=== PATIENT | female | born 1960 | race Caucasian/White ===

== ENCOUNTER 2019-07-03 05:57 | Day surgery (SDC) | payer BC ==
[~2019-07-03 05:57] MED LIST: Buffered Lidocaine 1% SYRIN* 1 ML/SYRINGE INTRADERM ONE
[2019-07-03] MEDS ORDERED: Famotidine IV* 10 MG/ML 2 ML (20 mg) IV ONE (06:00)
[2019-07-03] MEDS ORDERED: Lactated Ringers 1000 ML Bag* 1,000 ML IV SCH (06:00)
[2019-07-03] MEDS ORDERED: Dexamethasone IV* 4 MG/ML 1 ML (4 MG) IV SLOW PU ONE (06:00)
[2019-07-03] MEDS ORDERED: Famotidine IV* 10 MG/ML 2 ML (20 mg) ONE (06:11)
[2019-07-03] MEDS ORDERED: Buffered Lidocaine 1% SYRIN* 1 ML/SYRINGE INTRADERM ONE ×2 (06:11→12:02)
[2019-07-03] MEDS ORDERED: Dexamethasone IV* 4 MG/ML 1 ML (4 MG) ONE (06:11)
[2019-07-03] MEDS ORDERED: Midazolam* 1 MG/ML 5 ML VIAL (5 MG) ONE (07:12)
[2019-07-03] MEDS ORDERED: fentaNYL* 50 MCG/ML 2 ML VIAL (100 MCG VIAL) ONE (07:12)
[2019-07-03] MEDS ORDERED: Silver Nitrate/Potassium Nitr* 1 PAK (1 PAK PER PATIENT) ONE (07:23)
[2019-07-03] MEDS ORDERED: Chloroprocaine 2%* 20 ML VIAL ONE (07:31)
[2019-07-03] MEDS ORDERED: Midazolam* 1 MG/ML 2 ML VIAL (2 MG) ONE ×2 (07:46→08:21)
[2019-07-03] MEDS ORDERED: Ibuprofen TAB* 600 MG PO PRN (08:43)
[2019-07-03] MEDS ORDERED: HYDROcodone/ACETAMIN 5-325 MG* 1 TAB PO PRN ×2 (08:43→08:52)
[2019-07-03] MEDS ORDERED: Ketorolac INJ* 30 MG/ML 1 ML VIAL IV PRN (08:52)
[2019-07-03] MEDS ORDERED: Ondansetron INJ* 2 MG/ML VIAL IV PRN (08:52)
[2019-07-03] MEDS ORDERED: Naloxone* 0.4 MG/ML 1 ML VIAL IV PRN (08:52)
[2019-07-03] MEDS ORDERED: PROCHLORPERAZINE INJ 5 MG/ML 2 ML VIAL IV PRN (08:52)
[2019-07-03] MEDS ORDERED: fentaNYL* 50 MCG/ML 2 ML VIAL (100 MCG VIAL) IV PRN (08:52)
[2019-07-03] MEDS ORDERED: oxyCODONE/Acetamin 5/325 MG* TAB PO PRN (08:52)
--- NOTE | 2019-07-03 10:02 | OP ---
DATE OF OPERATION: 07/03/19 [facility] DATE OF : 56 SURGEON: Vicky Glass MD ANESTHESIOLOGIST: Dr. Hoang. ANESTHESIA: Spinal anesthesia with sedation. PRE-OP DIAGNOSES: Postmenopausal bleeding and thickened endometrium on ultrasound. POST-OP DIAGNOSES: Postmenopausal bleeding and thickened endometrium on ultrasound. OPERATIVE PROCEDURE: Dilatation, hysteroscopy, curettage. ESTIMATED BLOOD LOSS: Minimal less than 20 cc. FINDINGS: Midline cervix, retroverted uterus, the uterus sounds to 7. The cervix is stenotic at the level of the internal os. There were no endocervical or endometrial polyps seen. There was atrophic appearing endometrium. I was not able to visualize either tubal ostia or the fundus. The MyoSure fluid deficit was approximately 800 cc. COMPLICATIONS: None. COUNT: Sponge, count correct x2. CONDITION: The patient was brought to the recovery room awake and in stable condition. DESCRIPTION OF PROCEDURE: The patient was brought to the operating room. When spinal anesthesia was found to be adequate, the patient was prepped and draped in the usual sterile fashion in the dorsal lithotomy position. Time out was performed. Exam under anesthesia was performed after the bladder was emptied with a straight catheter of approximately 100cc clear urine. The weighted speculum was placed in the vagina. The anterior lip of the cervix was grasped with a single-tooth tenaculum and the cervix was gently dilated using the os finder then the graduated Hegar dilators. The uterus sounded to 7. The hysteroscope was introduced and the endocervix appeared normal. No endometrial polyp was visualized. There was atrophic appearing endometrium. Neither tubal ostia was able to be visualized, I do not think I fully visualized the fundal portion of the uterus either due to scarring at the fundus or if the uterus is markedly retroverted, I could not negotiate the angle to be able to visualize the fundus. I was meeting resistance and did not want to risk perforating. The hysteroscope was removed. Endometrial curettage was then performed. A scant amount of tissue was retrieved and sent to pathology in [place]. The single- tooth tenaculum was removed from the anterior lip of the cervix. Excellent hemostasis was noted. All instruments were removed from the vagina. Sponge, count was correct x2. The patient tolerated the procedure well and was brought to the recovery room, awake, and in stable condition. [id number]/[facility] #: [id number] ANNA MARIE
[2019-07-03 10:53] VITALS: BP 150/97
[2019-07-04] MEDS ORDERED: Acetaminophen TAB* 325 MG PO ONE (06:00)
[2019-07-04] MEDS ORDERED: Lactated Ringers 1000 ML Bag* 1,000 ML IV SCH (06:00)
== END 2019-07-03 11:00 | disposition home or self-care (01) ==
LOC: OR 05:57
PROVIDERS: ATTEND Obstetrics & Gynecology
DX: N95.0 Postmenopausal bleeding (principal); N84.0 Polyp of corpus uteri; M79.7 Fibromyalgia; M19.90 Unspecified osteoarthritis, unspecified site; Z88.1 Allergy status to other antibiotic agents
CPT/HCPCS: 88305; A9270-GY; J1100; J2250; J2400; J3010